=== PATIENT | male | born 1935 | race Caucasian/White ===

== ENCOUNTER 2019-06-08 12:55 | Inpatient (IN) | payer OTHER ==
[~2019-06-08] VITALS: Ht 175.3 cm; Wt 67.6 kg
[2019-06-08] MEDS ORDERED: METFORMIN HCL500 M3 PO (13:11)
[2019-06-08] MEDS ORDERED: LOSARTAN POTAS100 MG PO (13:11)
[2019-06-08] MEDS ORDERED: TAMS0.4C PO (13:12)
[2019-06-08] MEDS ORDERED: ATORVASTATIN CA40 MG PO (13:12)
[2019-06-08] MEDS ORDERED: SERTRALINE HCL PO (13:12)
[2019-06-13] MEDS ORDERED: SERTRALINE HCL100 MG PO (11:47)
[2019-06-13] MEDS ORDERED: BETAMETHASONE D60 ML (11:47)
[2019-06-13] MEDS ORDERED: GABAPENTIN600 MG PO (11:48)
[2019-06-13] MEDS ORDERED: AMITRIPTYLINE H25 MG PO (11:48)
[2019-06-23] MEDS ORDERED: VANCOMYCIN HCL125 MG PO (15:39)
== END 2019-06-23 16:39 | disposition home or self-care (01) | DRG 386 ==
LOC: ER 12:55 → SURG 06-09 08:32
PROVIDERS: ADMIT Internal Medicine
PROC: BW21Y0Z Computerized Tomography (CT Scan) of Abdomen and Pelvis using Other Contrast, Unenhanced and Enhanced (ICD-10-PCS; 2019-06-09)
PROC: 0DBP8ZX Excision of Rectum, Via Natural or Artificial Opening Endoscopic, Diagnostic (ICD-10-PCS; principal; 2019-06-17)
PROC: 0DBN8ZX Excision of Sigmoid Colon, Via Natural or Artificial Opening Endoscopic, Diagnostic (ICD-10-PCS; 2019-06-17)
DX: K51.00 Ulcerative (chronic) pancolitis without complications (principal); R65.10 Systemic inflammatory response syndrome (SIRS) of non-infectious origin without acute organ dysfunction; E86.0 Dehydration; E87.8 Other disorders of electrolyte and fluid balance, not elsewhere classified; I10 Essential (primary) hypertension; A04.8 Other specified bacterial intestinal infections; N40.0 Benign prostatic hyperplasia without lower urinary tract symptoms; R10.32 Left lower quadrant pain; E11.9 Type 2 diabetes mellitus without complications; Z79.4 Long term (current) use of insulin

== ENCOUNTER 2021-04-02 07:09 | Outpatient (CLI) | payer OTHER ==
[~2021-04-02 07:09] MED LIST: AMITRIPTYLINE H25 MG PO; ATORVASTATIN CA40 MG PO; BETAMETHASONE D60 ML; GABAPENTIN600 MG PO; LOSARTAN POTAS100 MG PO; METFORMIN HCL500 M3 PO; SERTRALINE HCL PO; SERTRALINE HCL100 MG PO; TAMS0.4C PO; VANCOMYCIN HCL125 MG PO
== END 2021-04-02 07:19 | disposition home or self-care (01) ==
LOC: SONOGRAMA 07:09
PROVIDERS: ATTEND Internal Medicine Gastroenterology
DX: R19.5 Other fecal abnormalities (principal)